=== PATIENT | female | born 1965 | race Caucasian/White ===

== ENCOUNTER 2018-12-15 21:52 | Emergency (ER) | payer BC, OTHER ==
[~2018-12-15] VITALS: Ht 167.6 cm; Wt 63.5 kg
--- OUTSIDE RECORDS SUMMARY | 2018-12-15 21:56 | XMS REPORT | Summary of Care ---
Author Author MADELEINE Hobson, SAM Organization Unknown Address Unknown Phone Unavailable Care Team Providers [facility] Nursing Assistant Name Role Phone SHAD Medina, SUZETTE Unavailable Unavailable HARPREET Medina, VALENTINA Unavailable Unavailable TABATHA Medina, EDGARDO Unavailable Unavailable JANIE Medina, FAUSTINO Unavailable Unavailable KUSHAL JIANG MD, LEVI VERDE Unavailable Unavailable SHAD SUNG UT, GAZARNALDO Unavailable Unavailable NATHAN SUNG, ALINA Unavailable Unavailable TABATHA SUNG OR, EDGARDO Unavailable Unavailable Janie SUNG, Faustino Unavailable Unavailable Gina SUNG, Jeancarlos Unavailable Unavailable Unavailable Unavailable Functional Status Name Dates Details Functional status health issues are not documented Status: Name Dates Details Cognitive status health issues are not documented Status: Problems Name Dates Details Posterior pain of hip, left (719.45, M25.552) Status: Active Posterior pain of hip, right (719.45, M25.551) Status: Active Shortness of breath on exertion (786.05, R06.02) Status: Active Lower urinary tract symptoms (LUTS) (788.99, R39.9) Status: Active Encounter for screening mammogram for breast cancer (V76.12, Z12.31) Status: Active Hematuria (599.70, R31.9) Status: Active Urinary tract infection (599.0, N39.0) Status: Active Easy fatigability (780.79, R53.83) Status: Active Chronic neck pain (723.1, M54.2) Status: Active Osteoarthritis of cervical 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, 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 Recurrent cystitis (595.9, N30.90) Status: Active Hematuria, microscopic (599.72, R31.29) Status: Active Vulvar lesion (624.8, N90.89) Status: Active Vulvodynia, 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, 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 Postmenopausal atrophic vaginitis (627.3, N95.2) Status: Active Productive cough (786.2, R05) Status: Active Cough due to bronchospasm (519.11, J98.01) Status: Active Procedure indicated Status: Active Preop examination (V72.84, Z01.818) Status: Active Postoperative examination (V67.00, Z09) Status: Active Post-op pain (338.18, G89.18) Status: Active Pain with urination (788.1, R30.9) Status: Active Postoperative depression (998.89, T81.89XA) Status: Active Follow-up exam (V67.9, Z09) Status: Active Follow up (V67.9, Z09) Status: Active Renal cyst (753.10, N28.1) Status: Active Inguinal hernia (550.90, K40.90) Status: Active Abdominal pain (789.00, R10.9) Status: Active Constipation (564.00, K59.00) Status: Active Colon cancer screening (V76.51, Z12.11) Status: Active Constipation (564.00, K59.00) Status: Active 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 * Start : 25-Mar-2018 Active 42.5 GM Tube Triamcinolone Acetonide 0.1 % External Cream APPLY SPARINGLY TO AFFECTED AREA(S) 2 TO 3 TIMES DAILY. * Quantity: 1 Refills: 0 VALENTINA MULLINS M.D. * Start : 28-May-2018 Active Fish Oil 500 MG Oral Capsule TAKE 4 CAPSULE DAILY * Refills: 0 * Start : 30-Aug-2018 Active Naproxen 500 MG Oral Tablet TAKE ONE TABLET BY MOUTH EVERY 12 HOURS WITH FOOD * Quantity: 60 Refills: 0 * Start : 30-Aug-2018 Active Vitamin C ER 1000 MG Oral Tablet Extended Release TAKE 1 TABLET TWICE DAILY * Refills: 0 * Start : 30-Aug-2018 Active Probiotic Oral Packet TAKE DIRECTED. * Refills: 0 * Start : 30-Aug-2018 Active Colace 100 MG Oral Capsule TAKE 2 CAPSULE TWICE DAILY * Refills: 0 * Start : 30-Aug-2018 Active Ocuvite Lutein 25 25-5 MG Oral Capsule TAKE 1 CAPSULE TWICE DAILY * Refills: 0 * Start : 30-Aug-2018 Active Methotrexate Sodium 2.5 MG Oral Tablet TAKE 6 TABLETS ONCE WEEKLY. * Quantity: 30 Refills: 1 TABATHA Medina EDGARDO * Start : 02-Sep-2018 Active Folic Acid 1 MG Oral Tablet TAKE 1 TABLET DAILY. 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 History of asthma (V12.69, Z87.09) Status: Resolved History of headache (V13.89, Z87.898) Status: Resolved Procedures Procedure Dates Details MRI Pelvis without contrast [id number] Date: 30-Aug-2018 History of Breast augmentation Completed Immunization Name Dates Details Immunizations not documented Family History Name Dates Details Family history of rheumatoid arthritis (V17.7, Z82.61) Status: Active Family history of psoriasis (V19.4, Z84.0) Status: Active Family history of hypertension (V17.49, Z82.49) Status: Active FHx: uterine cancer (V16.49, Z80.49) Status: Active Family history of hypothyroidism (V18.19, Z83.49) Status: Active Name Dates Details Family history of Alzheimer's disease (V17.2, Z82.0) Status: Active Family history of gout (V18.19, Z82.69) Status: Active Family history of hypertension (V17.49, Z82.49) Status: Active Family history of cerebrovascular accident (CVA) (V17.1, Z82.3) Status: Active Name Dates Details Family history of hypothyroidism (V18.19, Z83.49) Status: Active Social History Name Dates Details - Status: Name Dates Details Current every day smoker Vital Signs Date Test Result Details No Known Vitals to report Results Date Description Value Details [id number] [H] T-Spot TB T-Spot.TB Negative Range: Negative :20 Abdomen 2 views [id number] Abdomen 2 views SEE NOTES Comments: EXAM: XR ABDOMEN 2 VIEWDATE: 09/20/2018 9:20 CDTINDICATION: - K59.00 Constipation, unspecifiedADDITIONAL INFORMATION: None.COMPARISON: Abdomen/pelvis CT dated 08/26/2018TECHNIQUE: Upright and supine frontal view(s) of the abdomen.FINDINGS: Lines and tubes: None.Lower thorax: Unremarkable where visualized. No free air under the diaphragm.Bowel: Bowel gas pattern is nonobstructive. Colonic stool burden is moderate.Bones: No acute abnormality. IMPRESSION:Nonobstructive bowel gas pattern.--Read by: Darline Hale MDictated Date/time: 09/20/18 11:27Electronically Signed by: Darline Hale 09/20/1910:29FINAL REPORT :20 MRI Pelvis without contrast [id number] Pelvis without contrast MRI SEE NOTES Comments: EXAMINATION: MRI of the pelvis without contrastHISTORY: H15.013 Anterior scleritis, bilateral; low back pain radiating intoboth hips; sacral pain; clinical concern for sacroiliitisCOMPARI SON: Radiographs dated 01/21/2018 are reviewed.TECHNIQUE: Multiplanar, multisequence magnetic resonance images of the pelviswere obtained without contrast.FINDINGS:Bone: There is normal marrow signal intensity within the lower lumbar spine,sacrum, pelvis, and both proximal femora. Specifically, there is no evidence offracture, stress fracture, or avascular necrosis. There is a small,multilobular, T2 hyperintense cyst along the superior aspect of the leftsacroiliac joint, measuring 9 x 7 x 9 mm in craniocaudal, anteroposterior, andmediolateral dimensions respectively (series 5, image 15 and series 2, image35). The sacroiliac joints are otherwise normal without bone marrow edema,osseous irregularity, joint space narrowing, ankylosis, or sclerosis.Muscles and Tendons: The common hamstring origin attachments are n ormalbilaterally. The musculature of the pelvis including the piriformis muscles isnormal and symmetric.Soft Tissues: As described above, there is a small, multilobular, L4wxkjqcbigbey cyst along the the superior aspect of the left sacroiliac joint.No bursal fluid collection is seen. The sciatic nerves are normal andsymmetric. The sacral neuroforamina are patent. The presacral soft tissues arenormal.Bilateral Hips: Within each hip, there is no gross intra- articular abnormalityon large [id number] imaging.Other: The uterus is surgically absent. Visualized portions of theintraperitoneal pelvis and lower abdomen are otherwise unremarkable. Visualizedportions of the lower lumbar spine demonstrate mild desiccation of the L4-F6ilvucvagcuqnuy disc.IMPRESSION:1. Small, multilobular, T2 hyperintense cyst along the superior aspect of theleft sacroiliac joint, with measurements as above. This is nonspecific and mayrepresent a small ganglion cyst.2. Otherwise, normal MR appearance of the sacroiliac joints without bone marrowedema, osseous irregularity, joint space narrowing, ankylosis, or sclerosis tosuggest MR evidence of sacroiliitis.3. Mild desiccation of L4-L5 intervertebral disc.4. Status post hysterectomy.--Read by: Roman Reyes MDDictated Date/time: 09/20/18 11:22Electronically Signed by: Roman Reyes MD 09/20/1910:32FINAL REPORT Plan of Care Name Dates Details Planned Observations Planned Goals not documented Planned Encounters Appointment; FAUSTINO LIMA M.D. On: 01-Oct-2018 15:45 Appointment; EDGARDO MAYS M.D. On: 11-Oct-2018 14:30 Appointment; JEANCARLOS HYDE M.D. On: 19-Oct-2018 14:15 Appointment; SUZETTE KULKARNI M.D. On: 28-Oct-2018 14:15 Instructions Name Dates Details Instructions not documented Encounters Appointment; EDGARDO MAYS M.D. Encounter Diagnosis: Problem not documented On: 21-Jan-2018 8:00 Appointment; VALENTINA MULLINS M.D. Encounter Diagnosis: Problem not documented On: 03-Feb-2018 15:00 Appointment; VALENTINA MULLINS M.D. Encounter Diagnosis: Problem not documented On: 17-Feb-2018 11:00 Appointment; SUZETTE KULKARNI M.D. Encounter Diagnosis: Problem not documented On: 18-Feb-2018 14:30 Appointment; EDGARDO MAYS M.D. Encounter Diagnosis: Problem not documented On: 24-Feb-2018 10:00 Appointment; SUEZTTE KULKARNI M.D. Encounter Diagnosis: Problem not documented On: 25-Feb-2018 15:30 Appointment; VALENTINA MULLINS M.D. Encounter Diagnosis: Problem not documented On: 03-Mar-2018 10:00 Appointment; EDGARDO MAYS M.D. Encounter Diagnosis: Problem not documented On: 24-Mar-2018 10:00 Appointment; URODYNAMICS, NURSE Encounter Diagnosis: Problem not documented On: 25-Mar-2018 10:30 Appointment; URODYNAMICS, NURSE Encounter Diagnosis: Problem not documented On: 25-Mar-2018 10:30 Appointment; SUZETTE KULKARNI M.D. Encounter Diagnosis: Problem not documented On: 25-Mar-2018 10:30 Appointment; RED BURDICK M.D. Encounter Diagnosis: Problem not documented On: 06-Apr-2018 13:00 Appointment; SUZETTE KULKARNI M.D. Encounter Diagnosis: Problem not documented On: 15-Apr-2018 9:00 Appointment; SUZETTE KULKARNI M.D. Encounter Diagnosis: Problem not documented On: 22-Apr-2018 8:00 Appointment; SUZETTE KULKARNI M.D. Encounter Diagnosis: Problem not documented On: 04-May-2018 7:30 Appointment; VALENTINA MULLINS M.D. Encounter Diagnosis: Problem not documented On: 04-May-2018 7:30 Appointment; SUZETTE KULKARNI M.D. Encounter Diagnosis: Problem not documented On: 13-May-2018 8:00 Appointment; VALENTINA MULLINS M.D. Encounter Diagnosis: Problem not documented On: 19-May-2018 13:15 Appointment; VALENTINA MULLINS M.D. Encounter Diagnosis: Problem not documented On: 17-Jun-2018 9:45 Appointment; SUZETTE KULKARNI M.D. Encounter Diagnosis: Problem not documented On: 03-Aug-2018 13:30 Appointment; ALINA EVANS M.D. Encounter Diagnosis: Problem not documented On: 20-Aug-2018 10:30 Appointment; FAUSTINO LIMA M.D. Encounter Diagnosis: Problem not documented On: 30-Aug-2018 11:15 Appointment; EDGARDO MAYS M.D. Encounter Diagnosis: Problem not documented On: 30-Aug-2018 14:00 Appointment; FAUSTINO LMIA M.D. Encounter Diagnosis: Problem not documented On: 01-Oct-2018 15:45
[2018-12-15] MEDS ORDERED: SODIUM CHLORIDE 0.9% 1000ML 1,000 ML ONE (22:25)
[2018-12-15] MEDS ORDERED: SODIUM CHLORIDE 0.9% 1000 ML BAG IV ONE (22:30)
--- NOTE | 2018-12-15 23:57 | Diagnostic Imaging Report ---
Exam: Head CT without contrast History: Confusion, syncope Comparison studies: Brain MRI 10/09/2014. Technique: Axial images were obtained from the skull base to the vertex. Coronal and sagittal images reconstructed from the axial data. Dose modulation, iterative reconstruction, and/or weight based adjustment of the mA/kV was utilized to reduce the radiation dose to as low as reasonably achievable. Radiation dose: Total DLP: 969 mGy*cm. Estimated effective dose: DLP x 0.015 Intravenous contrast: None Findings: Scalp: No abnormalities. Bones: No fractures, blastic or lytic lesions. Brain sulci: Appropriate for age. Ventricles: Normal in size and configuration. No hydrocephalus. Extra-axial spaces: No masses, no fluid collection. Parenchyma: A few subtle hypodensities in the supratentorial white matter are nonspecific but most compatible with chronic microvascular ischemic changes. No masses, acute hemorrhage, acute or chronic vascular insults. Sellar/suprasellar region: No abnormalities. Craniocervical junction: Patent foramen magnum. No Chiari one malformation. IMPRESSION: 1. No acute intracranial abnormalities. 2. Minimal chronic microvascular ischemic changes which are better visualized on the prior brain MRI of 10/09/2014. Signed by: Dr. Maldonado Guevara M.D. on 12/15/2018 11:54 PM
== END 2018-12-16 00:19 | disposition home or self-care (01) ==
LOC: FSED 21:52
DX: R55 Syncope and collapse (principal); R47.01 Aphasia; F45.8 Other somatoform disorders; F10.120 Alcohol abuse with intoxication, uncomplicated
CPT/HCPCS: 36415; 70450; 80320; 93005; 99283; J7030